=== PATIENT | female | born 1965 | race Caucasian/White ===

== ENCOUNTER 2017-11-05 16:50 | Emergency (ER) | payer MEDICAID ==
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
[2017-11-05] MEDS ORDERED: Sodium Chloride 0.9% 1,000 ML IV ONE (19:00)
[2017-11-05] MEDS ORDERED: Sodium Chloride 0.9% 1,000 ML ONE (19:23)
[2017-11-05] MEDS ORDERED: Naloxone 2 MG/2 ML Syringe IVPUSH ONE (20:42)
== END 2017-11-05 19:50 ==
LOC: CC.ED 16:50
DX: F10.121 Alcohol abuse with intoxication delirium (principal); F17.210 Nicotine dependence, cigarettes, uncomplicated; R41.82 Altered mental status, unspecified; F41.9 Anxiety disorder, unspecified; Z88.2 Allergy status to sulfonamides
CPT/HCPCS: 96361; 96374; 99285; J2310; J7030; 51702